=== PATIENT | male | born 2000 | race Caucasian/White ===

== ENCOUNTER 2018-03-19 11:48 | Emergency (ER) | payer OTHER ==
[~2018-03-19] VITALS: Ht 170.2 cm; Wt 51.4 kg
[~2018-03-19 11:48] MED LIST: NOCURR
[2018-03-19 13:00] VITALS: BP 112/64
== END 2018-03-19 13:28 | disposition home or self-care (01) ==
LOC: EMS 11:52
DX: K64.5 Perianal venous thrombosis (principal); F12.90 Cannabis use, unspecified, uncomplicated
CPT/HCPCS: 99283